=== PATIENT | male | born 1960 ===

== ENCOUNTER → 2020-02-25 14:52 | Outpatient (CLI) | payer BC, SELFPAY ==
--- NOTE | ~2020-02-25 | MR_ITS ---
EXAMINATION: MR shoulder RT wo con DATE: 02/25/2020 16:34 INDICATION: Acute pain of right shoulder. TECHNIQUE: Magnetic resonance imaging (MRI) of the right shoulder was performed without intravenous c ontrast. Sequences included axial PD-weighted FS FSE, coronal oblique PD-weighted FS FSE and T2-weigh rico FS FSE, and sagittal oblique T2-weighted FS FSE and T1-weighted FSE. COMPARISON: Right shoulder radiographs 05/31/2019 FINDINGS: Coracoacromial arch: The acromion undersurface is curved in morphology (type II). Subacromial spurring is noted. There is severe acromioclavicular joint osteoarthritis including inferiorly directed osteophytes. There is mod erate subacromial/subdeltoid bursitis. Rotator cuff: There is moderate supraspinatus tendinopathy. There is a bursal sided partial-thickness tear of supra spinatus tendon measuring 6 mm anterior to posterior by 7 mm proximal to distal by 60% tendon thickne ss. There is mild infraspinatus tendinopathy. Teres minor tendon is normal. Subscapularis tendon is n ormal. There is volume loss and mild fatty atrophy of teres minor muscle belly, consistent with quadr ilateral space syndrome. Biceps tendon and glenoid labrum: There is a longitudinal split tear of biceps tendon, which is in bicipital groove. The glenoid labrum is normal. Fluid: There is a small glenohumeral joint effusion. Bones/cartilage: Glenoid cartilage is normal. Humeral head cartilage is normal. IMPRESSION: 1. Bursal-sided partial-thickness tear of supraspinatus tendon. 2. Longitudinal split tear of proximal biceps tendon. 3. Severe acromioclavicular joint osteoarthritis. 4. Small glenohumeral joint effusion. 5. Moderate subacromial/subdeltoid bursitis. 6. Volume loss and mild fatty atrophy of teres minor muscle belly, consistent with quadrilateral spac e syndrome. Reviewed, dictated and finalized at location B. IMPRESSION: 1. Bursal-sided partial-thickness tear of supraspinatus tendon. 2. Longitudinal split tear of proximal biceps tendon. 3. Severe acromioclavicular joint osteoarthritis. 4. Small glenohumeral joint effusion. 5. Moderate subacromial/subdeltoid bursitis. 6. Volume loss and mild fatty atrophy of teres minor muscle belly, consistent w ith quadrilateral space syndrome.
== END ==
PROVIDERS: PCP Family Medicine; Visit Provider Family Medicine
DX: M19.011 Primary osteoarthritis, right shoulder (principal); M25.411 Effusion, right shoulder; M75.51 Bursitis of right shoulder
CPT/HCPCS: 73221